=== PATIENT | female | born 1995 | race Caucasian/White ===

== ENCOUNTER 2021-10-02 08:11 | Inpatient (IN) ==
[2021-10-02] MEDS ORDERED: Lactated Ringers 1000 ml BAG 1,000 ML IV ONE ×2 (09:14→20:30)
[2021-10-02] MEDS ORDERED: Buffered Lidocaine 1% SYRIN 1 ml INTRADERM ONE (09:14)
[2021-10-02] MEDS ORDERED: Penicillin G Potassium IV 5,000,000 UNITS in NS 0.9% 100 ml BAG 100 ML IVPB ONE (09:35)
[2021-10-02] MEDS ORDERED: Oxytocin in LR 20 UNITS/1,000 ML BAG IVPB SCH ×2 (14:00→23:45)
[2021-10-02 14:50] LABS: ABS Eosinophils 0.1 10^3/ul (0-0.6); ABS Lymphocytes 1.6 10^3/ul (1.0-4.8); ABS Monocytes 0.4 10^3/ul (0-0.8); ABS Neutrophils 5.4 10^3/ul (1.5-7.7); Eosinophil % 1.5 %; Hematocrit 35 % (35-47); Hemoglobin 11.9 g/dL (12.0-16.0); Lymphocyte % 20.9 %; Mean Corpuscular HGB Conc 34 g/dL (31-36); Mean Corpuscular Hemoglobin 31 pg (27-31); Mean Corpuscular Volume 92 fL (80-97); Mean Platelet Volume 9.6 fL (7.4-10.4); Platelet Count 189 10^3/uL (150-450); Red Cell Distribution Width 14 % (10-15); White Blood Count 7.5 10^3/uL (3.5-10.8)
[2021-10-02] MEDS ORDERED: Al Hydrox/Mg Hydrox/Simet LIQ 30 ML UDC PO ONE (15:21)
[2021-10-02] MEDS: Calcium Carb (TUMS) 500 mg CHEW TAB PO PRN (17:06)
[2021-10-02] MEDS ORDERED: Penicillin G Potassium IV 3,000,000 UNITS in NS 0.9% 100 ml BAG 100 ML IVPB SCH (18:30)
[2021-10-02] MEDS: Vancomycin 1,000 MG in NS 0.9% 250 ml 250 ML IVPB SCH (18:45)
[2021-10-02] MEDS ORDERED: OBEPIDURAL 250 ML EPIDURAL ONE (19:29)
[2021-10-02] MEDS ORDERED: Phenylephrine 40 mcg/mL 10mL (400mcg) SYRINGE IV PUSH PRN ×2 (20:30)
[2021-10-02] MEDS ORDERED: Sodium Citrate/Citric Acid LIQ 15 ML UDC PO PRN (20:30)
[2021-10-02] MEDS ORDERED: EPHEDrine (Pressors) 50 MG/ML VIAL IV PUSH PRN ×2 (20:30)
[2021-10-02] MEDS ORDERED: OBEPIDURAL 250 ML EPIDURAL SCH (21:00)
[2021-10-02] MEDS ORDERED: Lactated Ringers 1000 ml BAG 1,000 ML IV SCH ×2 (21:00→23:45)
[2021-10-02 21:14] LABS: Urine Appearance Cloudy; Urine Bilirubin Negative (Negative); Urine Blood Negative (Negative); Urine Color Yellow; Urine Glucose Negative (Negative); Urine Ketones Negative (Negative); Urine Nitrite Negative (Negative); Urine Protein Negative (Negative); Urine Specific Gravity 1.011 (1.002-1.030); Urine Urobilinogen Negative (Negative)
[2021-10-02] MEDS ORDERED: Glycerin ADULT 2.4 gm SUPP PR PRN (23:40)
[2021-10-03] MEDS: Dibucaine 1% OINT 28.35 GM TUBE PR PRN ×2 (03:12→21:05)
[2021-10-03] MEDS: Witch Hazel PAD JAR TOPICAL PRN ×2 (03:12→21:06)
[2021-10-03] MEDS ORDERED: Lidocaine 1% VIAL 10 MG/ML VIAL ONE (04:41)
[2021-10-03 06:54] LABS: ABS Eosinophils 0.1 10^3/ul (0-0.6); ABS Lymphocytes 0.9 10^3/ul (1.0-4.8); ABS Monocytes 0.8 10^3/ul (0-0.8); Eosinophil % 1.2 %; Hematocrit 32 % (35-47); Lymphocyte % 9.9 %; Mean Corpuscular HGB Conc 35 g/dL (31-36); Mean Corpuscular Hemoglobin 32 pg (27-31); Mean Corpuscular Volume 92 fL (80-97); Platelet Count 149 10^3/uL (150-450); Red Blood Count 3.43 10^6 /uL (3.70-4.87); Red Cell Distribution Width 14 % (10-15); White Blood Count 8.8 10^3/uL (3.5-10.8)
[2021-10-03] MEDS: Vancomycin 1,000 MG in NS 0.9% 250 ml 250 ML IVPB SCH (09:06)
[2021-10-03] MEDS: Calcium Carb (TUMS) 500 mg CHEW TAB PO PRN (17:11)
[2021-10-04 09:49] VITALS: BP 104/67
== END 2021-10-04 12:36 | disposition home or self-care (01) | DRG 560 ==
LOC: MCHOBOUT 08:11 → MCHOB 09:16
PROVIDERS: ADMIT Midwife; ATTEND Midwife